=== PATIENT | female | born 1985 | race American Indian/Alaskan Native ===

== ENCOUNTER 2016-12-03 07:49 | Day surgery (SDC) | payer OTHER, MEDICAID ==
[2016-11-29 09:41] VITALS: BMI 28.6
[2016-12-03] MEDS ORDERED: HYDROmorphone 0.5 mg/0.5 ml ISec IVP PRN (09:00)
[2016-12-03] MEDS ORDERED: Lactated Ringer's 1,000 ML IV ONE (09:09)
[2016-12-03] MEDS ORDERED: Midazolam 2 MG/2 ML VIAL ONE (09:11)
[2016-12-03] MEDS ORDERED: Propofol 10 mg/ml Inj (20 ML) ONE (09:11)
--- NOTE | 2016-12-03 09:40 | PCM.SURG1 ---
Surgeon's Initial Post Op Note - Surgeon's Notes Surgeon: Sarah Chavis< [employer] Cell Builder: none Type of Anesthesia: General LMA Pre-Operative Diagnosis: Abnormal uteirne bleeding Operative Findings: anteverrted uteurs 8-10 weeks size, no adnexal masses, bilateral ostia visulzized Post-Operative Diagnosis: same as above Operation Performed: Operative hysteroscpy fractional dilation and currettage Specimen/Specimens Removed: endocervical currettings, endometrial currettings Estimated Blood Loss: EBL {In ML}: 5 Blood Products Given: N/A Drains Used: No Drains Post-Op Condition: Good Date of Surgery/Procedure: 12/03/16 Time of Surgery/Procedure: 09:30
[2016-12-03 11:12] VITALS: O2SAT 98
[2016-12-03] MEDS ORDERED: Lactated Ringer's 500 ML IV ONE (11:30)
[2016-12-03 11:39] VITALS: BP 116/54; PULSE 68; RESP 14; TEMP 97.1
--- NOTE | 2016-12-03 21:57 | OP ---
PROCEDURE DATE: 12/03/2016 PREOPERATIVE DIAGNOSIS: Abnormal uterine bleeding. POSTOPERATIVE DIAGNOSIS: Abnormal uterine bleeding. OPERATION PERFORMED: Operative hysteroscopy and fractional dilatation and curettage. SURGEON: Sarah Chavis MD SIGNAL CONSTRUCTOR: None. TYPE OF ANESTHESIA: General LMA. ESTIMATED BLOOD LOSS: None. BLOOD PRODUCTS: None. COMPLICATIONS: None. OPERATIVE FINDINGS: Anteverted uterus 8 to 10 weeks size, no adnexal masses, bilateral ostia visualized, no gross intracavitary lesions or masses. DESCRIPTION OF PROCEDURE: The patient was taken to the operating room where she was given general anesthesia. Once found to be adequate, she was placed on the operating table in dorsal lithotomy position with legs supported using stirrups. Time-out was performed; correct patient and correct procedure. Bimanual exam was performed with the above mentioned findings. The red rubber catheter was inserted into the urethra to drain the bladder with 10 mL of clear yellow urine was obtained. Ace retractor was placed in the anterior and posterior fornix of the vagina. The cervix was adequately visualized. The Ace retractor was placed in the anterior lip of the cervix. Endocervical curettings were obtained with a [facility] cure[facility] and sent to pathology on [facility]. Following this, the uterus was then sounded to 8 cm and cervix was sequentially dilated with the Gamal dilator to allow for introduction of hysteroscope under direct visualization using normal saline as the distention media. Upon visualization, bilateral ostia are visualized. No gross masses. Extensive curettage was done 360 degrees until gritty texture was noted. Specimen sent to pathology on [facility]. Hystero\scope was introduced and there was good hemostasis noted. All instruments were removed. There was good hemostasis at the tenaculum puncture site. At the end of the procedure, all needle, sponge, and instrument counts were noted and correct x2. The patient tolerated the procedure well and transferred to the recovery room in stable condition. Sarah Chavis MD
== END 2016-12-03 12:50 | disposition home or self-care (01) ==
LOC: C.SDS 07:49
PROVIDERS: ATTEND Obstetrics & Gynecology
DX: N93.9 Abnormal uterine and vaginal bleeding, unspecified (principal)
CPT/HCPCS: 58558; 88305; J1885; J2250; J2405; J2704; J3010; J7120